=== PATIENT | male | born 1975 | race Caucasian/White ===

== ENCOUNTER 2024-04-03 15:01 | Emergency (ER) | payer MEDICAID, SELFPAY ==
[2024-04-03 15:04] VITALS: BP 152/104; PULSE 105; RESP 20; TEMP 37; O2SAT 98; BMI 32.5
[2024-04-03 15:30] VITALS: BP 136/88; PULSE 87; O2SAT 96
[2024-04-03 15:40] LABS: VBG Base Excess 0.3 mmol/L (-2.4-2.3); VBG HCO3 26.1 mmol/L (23-30); VBG Oxygen Saturation 48.1 % (50-70); VBG PCO2 49.2 mmol/L (35-51); VBG PH 7.34 mmol/L (7.31-7.41); VBG PO2 25.8 mmol/L (28-40); VBG Total CO2 27.6 mmol/L (23-27)
[2024-04-03 15:40] LABS: Basophils # 0.1 K/mm3 (0-0.2); Basophils % 1.5 % (0.1-2.0); Eosinophils # 0.4 K/mm3 (0.0-0.4); Eosinophils % 6.5 % (0.1-12.0); Hemoglobin 17.4 g/dL (14.1-18.0); Lymphocytes # 1.4 K/mm3 (0.7-4.5); Lymphocytes % 20.7 % (10-50); Mean Corpuscular HGB Conc 34.8 g/dL (31.8-35.4); Mean Corpuscular Hemoglobin 28.5 pg (27.0-31.2); Mean Corpuscular Volume 81.8 fl (80-94); Mean Platelet Volume 8.7 fl (7.4-10.4); Monocytes # 0.5 K/mm3 (0.1-1.0); Neutrophils # 4.3 K/mm3 (1.8-7.8); Neutrophils % 64.2 % (37.0-80.0); Platelet Count 122 K/mm3 (142-424); Red Blood Count 6.12 M/mm3 (4.60-6.20); Red Cell Distribution Width 16.1 % (11.5-17.5); White Blood Count 6.7 K/mm3 (4.8-10.8)
[2024-04-03 15:41] LABS: Lactate Venous 2.7 mmol/L (0.4-2.0)
[2024-04-03 15:43] VITALS: BP 131/79; PULSE 111; O2SAT 98
--- NOTE | 2024-04-03 15:43 | CT_ITS ---
PROCEDURE INFORMATION: Exam: CT Abdomen And Pelvis With Contrast Exam date and time: 04/03/2024 4:06 PM Age: 48 years old Clinical indication: Abdominal pain; Other: Rlq pain into groin; Additional info: Rlq abd pain radiating into groin TECHNIQUE: Imaging protocol: Computed tomography of the abdomen and pelvis with contrast. Radiation optimization: All CT scans at this facility use at least one of these dose optimization techniques: automated exposure control; mA and/or kV adjustment per patient size (includes targeted exams where dose is matched to clinical indication); or iterative reconstruction. Contrast material: ISOVUE; Contrast volume: 75 ml; Contrast route: IV; COMPARISON: No relevant prior studies available. FINDINGS: Lungs: Lung bases are unremarkable. Liver: Subtle nodularity along the liver contours noted. There is widening of the fissures. No focal hepatic lesions. Gallbladder and bile ducts: Gallbladder is distended without radiopaque cholelithiasis. No biliary ductal dilation. Pancreas: No peripancreatic fluid stranding. No main pancreatic ductal dilation. Spleen: Splenomegaly to 16.5 cm. Adrenal glands: The adrenal glands are normal. Kidneys and ureters: Nephrograms are symmetric. No nephrolithiasis or hydroureteronephrosis on either side. No solid lesions Stomach and bowel: Scattered colonic diverticula without acute inflammatory change. No bowel wall thickening or distention. Appendix: There has been an appendectomy. Intraperitoneal space: There is no evidence of free intraperitoneal or pelvic fluid. Vasculature: Aorta is nonaneurysmal. Major aortic branches are patent. Lymph nodes: Unremarkable. No enlarged lymph nodes. Urinary bladder: Urinary bladder is unremarkable. Reproductive: Unremarkable as visualized. Bones/joints: No acute osseous abnormality. Soft tissues: There is a right ventral hernia containing omental fat. No significant fluid to suggest incarceration. IMPRESSION: 1. Findings mildly suspicious for cirrhosis. Splenomegaly. 2. There is a right ventral hernia containing omental fat. No significant fluid to suggest incarceration.
--- NOTE | 2024-04-03 15:43 | US_ITS ---
PROCEDURE INFORMATION: Exam: US Scrotum Exam date and time: 04/03/2024 5:14 PM Age: 48 years old Clinical indication: Scrotum pain; Additional info: R testicular/groin pain TECHNIQUE: Imaging protocol: Real-time ultrasound of the scrotum and contents with color Doppler and image documentation. COMPARISON: CT ABDOMEN PELVIS W CON 04/03/2024 4:06 PM FINDINGS: Right testicle: The right testicle measures 2.3 x 3.2 x 1.9 cm.The echotexture is homogeneous without focal lesions. Normal color Doppler evaluation. There is adequate arterial inflow and venous outflow. Left testicle: The left testicle measures 2.7 x 3.3 x 1.6 cm. The echotexture is homogeneous without focal lesions. Normal color Doppler evaluation. There is adequate arterial inflow and venous outflow. Epididymides: Heterogeneous right epididymis. Scrotum/soft tissues: Possible varicocele on the left side. IMPRESSION: 1. Heterogeneous right epididymis can be seen in the context of epididymitis. Correlate clinically. 2. Possible varicocele in the left side
[2024-04-03 15:45] LABS: Chloride 101 mmol/L (98-107); Potassium 3.9 mmoL/L (3.5-5.1); Sodium 141 mmol/L (136-145)
[2024-04-03 15:47] LABS: Blood Urea Nitrogen 18 mg/dl (9-20); Creatinine Clearance Estimated 93 mL/min (50-200); Estimated Glomerular Filt Rate 65 ml/min (>60); GFR (African American) 79 ML/MIN (>60)
[2024-04-03 15:48] LABS: Alanine Aminotransferase 51 U/L (12-78); Albumin Level 4.8 g/dl (3.5-5.0); Albumin/Globulin Ratio 1.5 (1.1-1.8); Alkaline Phosphatase 45 U/L (38-126); Anion Gap 14.9 mEq/L (5-15); Aspartate Amino Transferase 64 U/L (17-59); Bilirubin,Total 1.3 mg/dl (0.2-1.3); Calcium 9.8 mg/dl (8.4-10.2); Carbon Dioxide 29 mmol/L (22.0-30.0); Creatine Kinase 63 U/L (55-170); Globulin 3.3 g/dL (1.3-3.2); Glucose 77 mg/dl (74-100); Total Protein,Serum 8.1 g/dl (6.3-8.2)
[2024-04-03 15:49] LABS: Lactic Acid 1.7 mmol/L (0.7-2.1)
[2024-04-03] MEDS: diazePAM 5MG TABLET 5 MG PO (15:53)
[2024-04-03] MEDS: LACTATED RINGERS 1000ML 1,000 ML 999 ML IV (15:53)
[2024-04-03] MEDS: ACETAMINOPHEN 1,000MG/100ML VIAL 1000 MG IV (15:54)
[2024-04-03 16:03] LABS: Microscopic, Urine URINE MICROSCOPIC (MICROSCOPIC)
[2024-04-03 16:09] LABS: Appearance,Urine CLEAR (Clear); Blood, Urine Negative (Negative); Color,Urine AMBER (Yellow); Glucose,Urine (UA) Negative (Negative); Ketones,Urine TRACE (Negative); Leukocyte Esterase,Urine Negative (Negative); Nitrate,Urine Negative (Negative); PH,Urine 7.5 (5.0-8.5); Protein,Urine 1+ (Negative); Urobilinogen,Urine >=8.0 EU/dl (0.2)
[2024-04-03] MEDS: SODIUM CHLORIDE 0.9% 10ML SYR (RAD ONLY) 10 ML IV (16:13)
[2024-04-03] MEDS: IOPAMIDOL-370 (76%);100ML BOTTLE 75 ML IV (16:14)
--- NOTE | 2024-04-03 16:16 | [facility].EDGENADL ---
Discharge Plan Disposition Patient Disposition: Home, Self-Care Condition: Good Prescriptions Prescriptions: New levofloxacin 750 mg tablet 750 mg PO DAILY 7 Days Qty: 7 0RF naproxen 500 mg tablet 500 mg PO BID PRN (Reason: pain) Qty: 20 0RF Referrals Follow up/Referrals: Elias Whyte MD [Staff Physician] - See instructions Heath Shahid DO [Primary Care Provider] - See instructions Activity Restrictions/Add. Instructions Additional Instructions/Restrictions: You were evaluated in the emergency department and diagnosed with epididymitis. 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 You may also take Tylenol as needed for pain. Follow-up closely with your primary care provider as well as urology. We have provided you information for Dr. Whyte. Return to the emergency department for new or worsening symptoms. Clinical Impressions Clinical Impression: Epididymitis Instructions Patient Instructions: DI for Epididymitis Discharge ED Provider: Federica Wiley General Adult HPI General Chief complaint: PAIN Stated complaint: Testicle pain Time Seen by Provider: 04/03/24 15:14 Mode of Arrival: Ambulatory Source of Information: Patient Limitations: No Limitations Description of Symptoms (Recalled from ER Triage Doc. by RN): Patient presents to ED with right side groin pain that has been intermittenly for 2-3 days. patient reports it is radiating to his lower abdomen. Patient reports no BM in 5-6 days. Patient states he was in the hospital a few days ago for dehydration and was told his creatinine was 5.0 then went to 2.0. Patient has follow up with PCP in April. History of Present Illness HPI narrative: This patient is a 48-year-old male with history of methamphetamine use presenting to the emergency department for evaluation with concern for right-sided groin pain has been going on for about 3 days. 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 He notes that it radiates from his right lower quadrant into his right testicle. He also states he has not had a bowel movement in 5 or 6 days. He notes that he was admitted to [facility] couple days ago for dehydration and was told his creatinine was very high and he was told to follow-up with his primary care provider. He denies any fevers, chest pain, vomiting, rashes, or swelling. No testicular trauma noted Related Data Previous Rx's Medication Instructions Recorded levofloxacin 750 mg tablet 750 mg PO DAILY 7 days #7 tabs 04/03/24 naproxen 500 mg tablet 500 mg PO BID PRN pain #20 tabs 04/03/24 Allergies Allergy/AdvReac Type Severity Reaction Status Date / Time No Known Allergies Allergy Verified 04/03/24 15:31 [facility] Disclaimer: The information contained in this section may have been updated after the patient was seen, as this information can be updated by other users. Social History Smoking Status: Current every day smoker alcohol intake: never current occupational status: employed Travel in the last 8 weeks: None ROS Obtained: Yes All systems reviewed & no additional complaints except as documented Physical Exam General General appearance: alert Comment: Fidgety, writhing around in bed. Head Head exam: atraumatic and normocephalic Eye Eye exam: Present normal appearance, PERRL and EOMI ENT ENT exam: Present normal exam, normal oropharynx, mucous membranes moist and normal external ear exam Neck Neck exam: Present normal inspection, full ROM and trachea midline; Absent tenderness Chest Chest inspection: Present normal inspection and symmetric chest wall rise; Absent tenderness Respiratory Respiratory exam: Present normal lung sounds bilaterally; Absent respiratory distress, wheezes, stridor or accessory muscle use Cardiovascular Cardiovascular exam: Present regular rate and normal rhythm Abdominal Exam Abdominal exam: Present soft and tenderness (Lower abdominal, out of proportion to exam. Not cooperative with exam, kicking and failing upon attempts at palpation); Absent distention, guarding, rebound or rigidity Expanded Exam Scrotal exam: right: testicular tenderness Comment: Patient uncooperative with exam, but he has tenderness out of proportion to exam of the right testicle. No obvious skin changes or swelling. Extremities Exam Extremities exam: Present normal inspection, full ROM and normal capillary refill; Absent tenderness or edema Back Exam Back exam: Present normal inspection and full ROM; Absent tenderness Neurological Exam Neurological exam: Present alert, oriented X3, CN II-XII intact and normal gait; Absent motor sensory deficit Psychiatric Psychiatric exam: Present agitated and anxious Skin Skin exam: Present warm and dry Medical Decision Making Medical Records Medical records reviewed: Yes I reviewed the patient's medical records. Federico Inquiry Pt receiving controlled substance: No Vital Signs: 04/03/24 15:04 04/03/24 15:30 04/03/24 15:43 Temperature 98.6 F Temperature Source Oral Pulse Rate 87 111 H Pulse Rate [Right Radial] 105 H Respiratory Rate 20 Blood Pressure 136/88 131/79 Blood Pressure [Right Arm] 152/104 H Blood Pressure Mean [Right Arm] 120 Blood Pressure Source Blood Pressure Source [Right Arm] Automatic Cuff Blood Pressure Position Blood Pressure Position [Right Arm] Supine 02 Sat by Pulse Oximetry 98 96 98 Oxygen Delivery Method Room Air 04/03/24 16:31 04/03/24 18:48 Temperature 98.7 F Temperature Source Oral Pulse Rate 108 H 74 Pulse Rate [Right Radial] Respiratory Rate 18 Blood Pressure 125/80 134/80 Blood Pressure [Right Arm] Blood Pressure Mean [Right Arm] Blood Pressure Source Automatic Cuff Blood Pressure Source [Right Arm] Blood Pressure Position Supine Blood Pressure Position [Right Arm] 02 Sat by Pulse Oximetry 99 Oxygen Delivery Method Room Air Room Air Lab Data Lab results reviewed: Yes I reviewed the patient's lab results. Lab Results 04/03/24 15:20: WBC 6.7, RBC 6.12, Hgb 17.4, Hct 50.0, MCV 81.8, MCH 28.5, MCHC 34.8, RDW 16.1, Plt Count 122 L, MPV 8.7, Neut % (Auto) 64.2, Lymph % (Auto) 20.7, [place] % (Auto) 7.0, Eos % (Auto) 6.5, Baso % (Auto) 1.5, Neut # (Auto) 4.3, Lymph # (Auto) 1.4, [place] # (Auto) 0.5, Eos # (Auto) 0.4, Baso # (Auto) 0.1, Sodium 141, Potassium 3.9, Chloride 101, Carbon Dioxide 29, Anion Gap 14.9, BUN 18, Creatinine 1.20, Estimated Creat Clear 93, Estimated GFR 65, Est GFR ( Amer) 79, Glucose 77, Lactate 1.7, Calcium 9.8, Total Bilirubin 1.3, AST 64 H, ALT 51, Alkaline Phosphatase 45, Total Creatine Kinase 63, Total Protein 8.1, Albumin 4.8, Globulin 3.3 H, Albumin/Globulin Ratio 1.5 04/03/24 15:32: VBG pH 7.34, VBG pCO2 49.2, VBG pO2 25.8 L, VBG HCO3 26.1, VBG Total CO2 27.6 H, VBG O2 Saturation 48.1 L, VBG Base Excess 0.3, VBG Lactic Acid 2.7 H 04/03/24 15:52: Urine Color Federica, Urine Appearance Clear, Urine pH 7.5, Ur Specific Platinum 1.020, Urine Protein 1+, Urine Glucose (UA) Negative, Urine Ketones Trace, Urine Blood Negative, Urine Nitrate Negative, Urine Bilirubin 2+ A, Urine Urobilinogen >=8.0, Ur Leukocyte Esterase Negative, Urine RBC None, Urine WBC Occasional, Ur Squamous Epith Cells None, Urine Bacteria None 04/03/24 15:20 04/03/24 15:20 Orders (Tests/Meds): ED MEDICATIONS Discontinued Medications Generic Name Dose Route Start Last Admin Trade Name Freq PRN Reason Stop Dose Admin Acetaminophen 1,000 mg 04/03/24 15:44 04/03/24 15:54 Acetaminophen 1,000mg/100ml Vial IV 04/03/24 15:45 1,000 mg ONCE ONE Administration Ceftriaxone Sodium 500 mg 04/03/24 18:25 04/03/24 18:38 Ceftriaxone 500mg Vial IM 04/03/24 18:26 500 mg ONCE ONE Administration Diazepam 5 mg 04/03/24 15:44 04/03/24 15:53 Diazepam 5mg Tablet PO 04/03/24 15:45 5 mg ONCE ONE Administration Hydromorphone HCl 2 mg 04/03/24 17:17 04/03/24 17:19 Hydromorphone 2mg/Ml Syringe IV 04/03/24 17:18 2 mg ONCE ONE Administration Lactated Ringer's 1,000 mls @ 999 mls/hr 04/03/24 15:44 04/03/24 15:53 Lactated Ringer's 1000 Ml Bag IV 04/03/24 16:44 999 mls/hr .Q1H1M ONE Administration Iopamidol 75 ml 04/03/24 16:11 04/03/24 16:14 Iopamidol-370 (76%);100ml Bottle IV 04/03/24 16:12 75 ml ONCE ONE Administration Levofloxacin 500 mg 04/03/24 18:25 04/03/24 18:39 Levofloxacin 500mg Tab PO 04/03/24 18:26 500 mg ONCE ONE Administration Lidocaine HCl 0 ml 04/03/24 18:25 04/03/24 18:38 Lidocaine 1% 5ml Pf Vial IM 04/03/24 18:26 1.5 ml ONCE ONE Administration Sodium Chloride 10 ml 04/03/24 16:11 04/03/24 16:13 Sodium Chloride 0.9% 10ml Syr (Rad Only) IV 04/03/24 16:12 10 ml ONCE ONE Administration ORDERS Category Date Time Status CT abdomen pelvis w con Stat Cat Scan 04/03/24 15:43 Completed CMP [Comprehensive Metabolic Panel] Stat Lab 04/03/24 15:20 Completed Complete Blood Count Auto Diff Stat Lab 04/03/24 15:20 Completed Creatine Kinase Stat Lab 04/03/24 15:20 Completed Lactic Acid Stat Lab 04/03/24 15:20 Completed Urinalysis and Microscopic Stat Lab 04/03/24 15:52 Completed Urine Culture Stat Micro 04/03/24 15:54 Received Venous Blood Gas Stat RT 04/03/24 15:32 Completed Testicular US [US Testicular] Stat Ultrasound 04/03/24 15:43 Completed Medical Decision Narrative: In summary, this patient is a 48-year-old male presenting to the Emergency Department for evaluation of right groin/testicular. Differential diagnoses considered include but are not limited to hernia, strangulated hernia, incarcerated hernia, epididymitis, testicular torsion, hydrocele. Ruling out the most morbid conditions drove assessment. It should be noted patient's history includes methamphetamine use which is not at goal therapy. This complicates all aspects of care by increasing patient's risk for morbidity. Patient not cooperative with abdominal or testicular exam, he has pain out of proportion with palpation of his right lower quadrant and right testicle. Workup included CBC, CMP, VBG, lactic acid, urinalysis, urine gonorrhea chlamydia, CT abdomen and pelvis with as well as testicular ultrasound. He appears to be under the influence of methamphetamines, so he was given 5 mg of oral Valium as well as a bolus of IV fluids and IV acetaminophen. I independently interpreted CT and ultrasound prior to the radiologist read and noted concerns for epididymitis without incarcerated hernia or torsion. Please see their read for final interpretation. Labs were obtained that demonstrated mildly elevated lactic acid in the setting of methamphetamine use. No other acutely concerning abnormalities.. On reassessment, the patient is resting comfortably. He continues to be fidgety, but exam is benign. Per radiology read, concern for epididymitis. Given this, we will treat him empirically for STIs as I feel he could potentially be high risk. Gonorrhea and Chlamydia testing sent. He was given IM Rocephin as well as oral Levaquin. He was discharged home with prescription for Levaquin, naproxen, and instructions for close urology follow-up as well as strict return precautions. Patient was discharged after all questions were answered. Critical Care Critical Care Time Critical Care Time: No
[2024-04-03 16:19] LABS: Bilirubin,Urine 2+ (Negative)
[2024-04-03 16:31] VITALS: BP 125/80; PULSE 108; O2SAT 99
[2024-04-03 16:32] LABS: WBC,Urine Occasional #/hpf (0-3)
[2024-04-03] MEDS: HYDROMORPHONE 2MG/ML SYRINGE 2 MG IV (17:19)
--- NOTE | 2024-04-03 18:08 | PC.NURSE ---
call made to talisha to [place] to [employer]
[2024-04-03] MEDS: cefTRIAXone 500MG VIAL 500 MG IM (18:38)
[2024-04-03] MEDS: LIDOCAINE 1% 5ML PF VIAL IM (18:38)
[2024-04-03] MEDS: levoFLOXacin 500MG TAB 500 MG PO (18:39)
[2024-04-03 18:48] VITALS: BP 134/80; PULSE 74; RESP 18; TEMP 37.1; O2SAT 97
[2024-04-08 03:36] LABS: Neisseria gonorrhoeae, NAA Negative (Negative)
== END 2024-04-03 18:49 | disposition home or self-care (01) ==
PROVIDERS: Emergency Provider Emergency Medicine; PCP Family Medicine
DX: N45.1 Epididymitis (principal); R10.31 Right lower quadrant pain; B96.89 Other specified bacterial agents as the cause of diseases classified elsewhere; F17.210 Nicotine dependence, cigarettes, uncomplicated
CPT/HCPCS: 74177; 76870; 80053; 81001; 82550; 82803; 83605; 85025; 87086; 87491; 87591; 96361; 96372; 96374; 96375; 99285; J0131; J0696; J7120; Q9967